=== PATIENT | female | born 1995 | race Hispanic/Latino ===

== ENCOUNTER 2018-01-08 17:44 | Inpatient (IN) | payer MEDICAID ==
[~2018-01-08] VITALS: Ht 149.9 cm; Wt 86.6 kg
[2018-01-08 18:46] LABS: HEMATOCRIT 35.3 % (36-48); MEAN CORPUSCULAR HEMOGLOBIN 27.8 pg (27.0-33.0); MEAN CORPUSCULAR HGB CONC 34.6 g/dL (32.0-36.0); MEAN CORPUSCULAR VOLUME 80.4 fL (79-99); PLATELET COUNT (AUTO) 133 K/uL (130-400); RED BLOOD CELL COUNT(AUTO) 4.39 MIL/uL (4.00-5.50); RED CELL DISTRIBUTION WIDTH 15.1 % (11.0-15.5)
[2018-01-08 18:49] LABS: APPEARANCE,URINE Clear (CLEAR); BILIRUBIN,URINE Negative (NEGATIVE); COLOR,URINE Yellow (YELLOW); GLUCOSE, URINE (UA) Negative (NEGATIVE); KETONES,URINE Negative (NEGATIVE); LEUKOCYTE ESTERASE ,URINE Trace (NEGATIVE); NITRATE,URINE Negative (NEGATIVE); OCCULT BLOOD,URINE Small (NEGATIVE); PH,URINE 6.5 (5.0-8.0); PROTEIN,URINE Negative (NEGATIVE)
[2018-01-08 18:57] LABS: CREATININE 0.6 mg/dL (0.5-1.5); POTASSIUM 3.9 mmol/L (3.5-5.1)
[2018-01-08 19:00] LABS: INR 0.89 (0.85-1.15); PARTIAL THROMBOPLASTIN TIME 25.3 SEC (26.3-35.5); PROTHROMBIN TIME 9.4 SEC (9.6-11.6)
[2018-01-08 19:01] LABS: ALBUMIN 2.8 g/dL (3.5-5.0); BILIRUBIN,TOTAL 0.2 mg/dL (0.2-1.0); TOTAL PROTEIN, SERUM 7.4 g/dL (6.0-8.3); URIC ACID 4.3 mg/dL (2.6-7.2)
[2018-01-08 19:11] LABS: BACTERIA,URINE Moderate /HPF (None Seen)
[2018-01-08 19:12] LABS: SQUAMOUS EPITHELIAL CELL,UR Few /HPF (0-2)
[2018-01-08 19:13] LABS: MUCUS,URINE Few LPF (None Seen)
[2018-01-08] MEDS: CLINDAMYCIN 600 MG/D5% WATER 50 ML IVPB SCH (19:50)
[2018-01-08] MEDS: LACTATED RINGERS 1000ML 1,000 ML IV PRN (19:53)
[2018-01-09] MEDS: LACTATED RINGERS 1000ML 1,000 ML IV PRN (02:12)
[2018-01-09] MEDS: CLINDAMYCIN 600 MG/D5% WATER 50 ML IVPB SCH ×2 (02:13→08:23)
[2018-01-09] MEDS ORDERED: OXYTOCIN 10 USP UNITS/ML ONE ×2 (02:18→15:53)
[2018-01-09] MEDS ORDERED: LACTATED RINGERS 1000ML 1,000 ML IV ONE (02:18)
[2018-01-09] MEDS ORDERED: OXYTOCIN 10 USP UNITS/ML 20 UNIT in LACTATED RINGERS 1000ML 1,000 ML IV SCH (03:00)
[2018-01-09] MEDS ORDERED: NALOXONE HCL 0.4 MG/1 ML ML IV PRN (09:15)
[2018-01-09] MEDS ORDERED: EPHEDRINE SULFATE 50 MG/ML AMPULE IVP PRN ×2 (09:15→16:30)
[2018-01-09] MEDS ORDERED: LACTATED RINGERS 500 ML 500 ML IV PRN (09:15)
[2018-01-09] MEDS ORDERED: ROPIVACAINE 0.2% 100ML VIAL 100 ML IJ SCH (09:30)
[2018-01-09] MEDS ORDERED: CLINDAMYCIN 900 MG/D5% WATER 50 ML IV ONE (14:34)
[2018-01-09] MEDS ORDERED: FENTANYL CITRATE PF 50 MCG/1 ML 2ML VIAL ONE (14:52)
[2018-01-09] MEDS ORDERED: MIDAZOLAM HCL 1 MG/ML 2ML VIAL ONE (15:08)
[2018-01-09] MEDS ORDERED: DURAMORPH PF1 MG/ML 10ML AMP IV ONE (15:09)
[2018-01-09] MEDS ORDERED: MEPERIDINE-PF 25 MG/ML SYG ONE (16:08)
[2018-01-09] MEDS ORDERED: MEPERIDINE-PF 50 MG/ML SYG ONE (16:08)
[2018-01-09] MEDS ORDERED: PROMETHAZINE HCL 25 MG/ML 1ML AMPULE IM ONE (16:08)
[2018-01-09] MEDS ORDERED: ONDANSETRON HCL 4 MG/2 ML VIAL IVP PRN ×2 (16:30)
[2018-01-09] MEDS ORDERED: NALOXONE HCL 0.4 MG/1 ML ML IVP PRN ×2 (16:30)
[2018-01-09] MEDS ORDERED: ONDANSETRON HCL 4 MG/2 ML 8 MG in SODIUM CHLORIDE 0.9% 50 ML IVP NR (16:30)
[2018-01-09] MEDS ORDERED: MORPHINE SULFATE 2 MG/ML 1ML SYG IVP PRN (16:30)
[2018-01-09] MEDS ORDERED: METOCLOPRAMIDE 10 MG/2 ML VIAL IVP PRN (16:30)
[2018-01-09] MEDS ORDERED: HYDROCODONE/ACETAMINOPHEN 5/325 MG TAB PO PRN (16:30)
[2018-01-09] MEDS ORDERED: PROMETHAZINE HCL 25 MG/ML 1ML AMPULE IM PRN ×2 (16:30→17:45)
[2018-01-09] MEDS ORDERED: DiphenhydrAMINE HCL 50 MG/ML VIAL IVP PRN (16:30)
[2018-01-09 17:00] VITALS: BP 133/81
[2018-01-09] MEDS ORDERED: OXYTOCIN-LR 20 UNITS/1000 ML 1,000 ML IV PRN (17:33)
[2018-01-09] MEDS ORDERED: SODIUM CHLORIDE 0.9% 10 ML VIAL IVP PRN (17:45)
[2018-01-09] MEDS ORDERED: MEPERIDINE-PF 75 MG/ML SYG IM PRN (17:45)
[2018-01-09] MEDS: DEXTROSE 5 %-0.45 % NACL 1,000 ML IV PRN (19:46)
[2018-01-09 20:40] VITALS: BP 123/74
[2018-01-10 01:12] VITALS: BP 122/68
[2018-01-10] MEDS: DEXTROSE 5 %-0.45 % NACL 1,000 ML IV PRN ×2 (02:49→10:20)
[2018-01-10 04:47] VITALS: BP 94/58
[2018-01-10 05:44] LABS: HEMATOCRIT 29.3 % (36-48); MEAN CORPUSCULAR HEMOGLOBIN 28.1 pg (27.0-33.0); MEAN CORPUSCULAR VOLUME 82.7 fL (79-99); PLATELET COUNT (AUTO) 121 K/uL (130-400); RED BLOOD CELL COUNT(AUTO) 3.54 MIL/uL (4.00-5.50); RED CELL DISTRIBUTION WIDTH 15.1 % (11.0-15.5); WHITE BLOOD COUNT (AUTO) 11.8 K/uL (4.8-10.8)
[2018-01-10 06:17] LABS: HEPATITIS Bs ANTIGEN SCREEN P Negative (Negative)
[2018-01-10 07:52] VITALS: BP 104/59
[2018-01-10] MEDS: HYDROCODONE/ACETAMINOPHEN 5/325 MG TAB PO PRN ×2 (09:37→17:33)
[2018-01-10 12:03] VITALS: BP 111/68
[2018-01-10] MEDS ORDERED: BISACODYL 10 MG SUPP.RECT RC PRN (15:15)
[2018-01-10 15:50] VITALS: BP 110/66
[2018-01-10] MEDS ORDERED: MEASLES/MUMPS/RUBELLA VACCINE, LIVE 0.5 ML/VIAL SQ ONE ×2 (17:30→18:53)
[2018-01-10] MEDS ORDERED: ACETAMINOPHEN-CODEINE 300/30MG TAB PO PRN (17:30)
[2018-01-10] MEDS ORDERED: DIPH,PERTUSS(ACELL),TET VAC/PF 0.5 ML VIAL IM ONE ×2 (17:30→18:53)
[2018-01-10] MEDS ORDERED: LANOLIN 30GM OINTMENT TP PRN (17:30)
[2018-01-10] MEDS: SIMETHICONE 80 MG TAB.CHEW PO PRN ×2 (17:31→21:24)
[2018-01-10 20:44] VITALS: BP 123/60
[2018-01-10] MEDS: DOCUSATE SODIUM 100 MG CAP PO SCH ×2 (21:00→21:24)
[2018-01-11 00:28] VITALS: BP 102/60
[2018-01-11] MEDS: IBUPROFEN 600 MG TABLET PO PRN ×3 (01:24→17:57)
[2018-01-11 04:22] VITALS: BP 100/46
[2018-01-11 07:43] VITALS: BP 111/69
[2018-01-11] MEDS: DOCUSATE SODIUM 100 MG CAP PO SCH ×3 (09:00→22:31)
[2018-01-11] MEDS: SIMETHICONE 80 MG TAB.CHEW PO PRN ×3 (09:47→22:31)
[2018-01-11 11:56] VITALS: BP 120/65
[2018-01-11 16:22] VITALS: BP 122/70
[2018-01-11 19:07] VITALS: BP 122/70
[2018-01-12 00:20] VITALS: BP 96/50
[2018-01-12] MEDS: IBUPROFEN 600 MG TABLET PO PRN ×2 (00:20→09:07)
[2018-01-12 03:25] VITALS: BP 97/45
[2018-01-12 07:36] VITALS: BP 100/59
[2018-01-12] MEDS: DOCUSATE SODIUM 100 MG CAP PO SCH ×2 (09:00→09:06)
[2018-01-12] MEDS: SIMETHICONE 80 MG TAB.CHEW PO PRN (09:06)
[2018-01-12 11:26] VITALS: BP 127/60
== END 2018-01-12 14:50 | disposition home or self-care (01) | DRG 540 ==
LOC: LDH 17:44 → WSH 01-09 17:00 → PREOBSVTOIN 01-12 17:38
PROVIDERS: ADMIT Obstetrics & Gynecology; ATTEND Obstetrics & Gynecology
PROC: 10D00Z1 Extraction of Products of Conception, Low, Open Approach (ICD-10-PCS; principal; 2018-01-09 15:00)
DX: O76 Abnormality in fetal heart rate and rhythm complicating labor and delivery (principal); O16.4 Unspecified maternal hypertension, complicating childbirth; J45.909 Unspecified asthma, uncomplicated; O99.52 Diseases of the respiratory system complicating childbirth; Z37.0 Single live birth; Z90.89 Acquired absence of other organs; Z83.3 Family history of diabetes mellitus; Z82.49 Family history of ischemic heart disease and other diseases of the circulatory system; Z3A.39 39 weeks gestation of pregnancy; Z88.0 Allergy status to penicillin; Z88.8 Allergy status to other drugs, medicaments and biological substances
CPT/HCPCS: 36415; 59510; 80053; 81001; 84550; 85027; 85384; 85610; 85730; 86592; 86850; 86900; 86901; 87340; 90707; 90715; A4314; A4344; A4450; A4606; J2175; J2250; J2274; J2550; J2590; J3010; J3490; J7120